=== PATIENT | female | born 1975 | race Caucasian/White ===

== ENCOUNTER → 2016-07-18 | Outpatient (CLI) | payer OTHER ==
[~2016-07-18] MED LIST: LIDOCAINE 1% MDV 20ML VIAL As Ordered ONE
--- NOTE | 2016-07-18 17:51 | REP ---
ULTRASOUND GUIDED STERNAL NOTCH NODULE BIOPSY: The procedure was performed under the direct supervision of Dr. Olson. The patient has a history of superior mediastinal lymphadenopathy with at least 1 node to the left of midline just above the suprasternal notch seen on a previous CAT scan dated 02/04/2016. The risks and benefits of the procedure were explained to the patient and informed consent was obtained. The sternal notch nodule was localized using ultrasound guidance. The skin was prepped and draped in a sterile fashion. 1% Xylocaine was used as a local anesthetic. Using ultrasound guidance 6 fine-needle aspirations were obtained and sent to the lab. The patient tolerated the procedure well and there were no immediate complications. After the appropriate amount of monitored convalesce the patient was discharged from the department. Reviewed by PAO Suarez 07/19/2016 08:33 AEdited and Signed by Rich Olson MD 07/19/2016 02:44 P
== END ==
LOC: M RADPRO 09:32
PROVIDERS: ATTEND Otolaryngology
DX: R89.6 Abnormal cytological findings in specimens from other organs, systems and tissues (principal); R22.1 Localized swelling, mass and lump, neck; Z88.1 Allergy status to other antibiotic agents; Z79.899 Other long term (current) drug therapy

== ENCOUNTER → 2016-08-03 | Outpatient (CLI) | payer OTHER ==
[~2016-08-03] MED LIST changes: +ISOVUE-370 76% 100ML VIAL (Q9967) As Ordered ONE; -LIDOCAINE 1% MDV 20ML VIAL As Ordered ONE
--- NOTE | 2016-08-03 09:10 | REP ---
CT CHEST WITH CONTRAST: 08/03/2016. Comparison: CT neck 02/04/2016, ultrasound neck 02/01/2016. Clinical history: chest pain. Cervical adenopathy sternal notch and superior mediastinum. Technique: Bolus of 75 ml Isovue 370 scanning through the chest in both coronal and sagittal reconstructions. Findings: The lung marin are well inflated. There is no pleural effusion, pleural-based mass, calcified pleural plaque or acute infiltrate. Some minor apical scarring. No pneumothorax, pneumomediastinum or other acute finding. A 1 mm subpleural nodule seen in the right upper lobe without other definite nodules. The heart is not enlarged as no pericardial thickening or effusion. There is no aortic aneurysm of the ascending aorta 3.1 cm ascending aorta 2 cm and a and arch of 2.2 cm. No dissection. The main right and left pulmonary arteries and the mediastinum are without filling defects. There are prevascular space nodes with a and 19 and 15 mm node present adjacent to the main pulmonary artery segment and aortic arch and a 13 mm node adjacent to the anterior margin of the arch in the superior mediastinum. At the level of the takeoff of the left common carotid artery is a 2.1 x 1.1 cm node. Previous study. This was 10 x 1.23 cm. That just above the sternal notch where there was a 12 x 7 mm lymph node on the previous CT neck. I do not see a noted today. Thyroid lobes are unremarkable. The supraclavicular region was without other mass. There are multiple small nodes in the axilla. I cannot deftly of pathologic size. The ana show no pathologic adenopathy. AP window, prevascular, subcarinal and right paratracheal regions without adenopathy. Bone windows show the sternum, manubrium, clavicles, AC joints, glenohumeral joints, humeral heads, scapulae and ribs intact. Spine shows no compression deformity of destructive lesion. In the upper abdomen only a portion of liver and spleen are identified and without acute finding. The pancreatic he contours only seen in part with a portion of the head, body and tail adrenal glands without a mass. The upper poles of kidneys intact. Stomach showed no hiatal hernia is collapsed. Impression: 1. The suprasternal notch node on the previous study is not visible today but there is adenopathy in the superior mediastinum adjacent to the aortic arch, AP window and takeoff of the left common carotid artery as described. The largest node is the 15 mm node in the prevascular space along with 13 and 9 mm nodes as well. Adjacent to the left common carotid artery is another node at 2.1 x 1.1 cm. These are similar to last year's CT neck. I do not see other significant nodes or masses in the chest. A 1 mm of lung nodule on the right subpleural region is, of doubtful significance. 2. The aorta, central pulmonary arteries, heart and chest wall were unremarkable. Bones intact. Signed by Kushal Nuñez MD 08/03/2016 09:01 A
== END ==
LOC: M RAD 08:11
PROVIDERS: ATTEND Otolaryngology
DX: R59.0 Localized enlarged lymph nodes (principal); R07.9 Chest pain, unspecified
CPT/HCPCS: 71260; Q9967

== ENCOUNTER → 2017-02-15 | Outpatient (CLI) | payer OTHER ==
--- NOTE | 2017-02-15 10:15 | REP ---
BILATERAL MAMMOGRAM WITH DIAGNOSTIC MAMMOGRAM, LEFT BREAST AND LEFT BREAST ULTRASOUND: Bilateral mammography performed in the MLO and CC projections. There are no prior studies for comparison. Reportedly, there is a palpable abnormality just inferior to the nipple on the left side. That area is marked on the skin with a triangular marker. Breast parenchyma is extremely dense bilaterally limiting the sensitivity of the mammogram. No definite mass or architectural distortion is seen bilaterally. No clustered microcalcifications are seen. Real-time sonographic evaluation of the left breast is performed just below the left nipple at the site of the reported palpable abnormality. Some dilated ducts are seen with dense fibroglandular tissue. No discrete cystic or solid mass is seen. IMPRESSION: ACR 2 benign. No mass or clustered microcalcifications. Dense breast parenchymal limits the sensitivity of the mammogram. There is no mammographic or sonographic evidence of a suspicious mass at the site of the reported palpable abnormality just inferior to the left nipple. However, a negative mammogram and ultrasound should not deter biopsy if there is a clinically suspicious palpable mass present. Please note that according to the Tyrer-Cuzick risk model, the patient's lifetime risk for breast cancer is 22%, which is elevated above normal. There is a family history of breast cancer in a paternal aunt. Given the elevated lifetime risk for breast cancer, I would recommend MRI of the breasts. Also recommend followup mammogram in 1 years. BI-RADS/ACR category 2 mammogram. Benign finding(s). Routine annual screening mammography (for women over age 40). This mammogram was interpreted with the aid of an FDA-approved computer-aided detection system. A. Negative x-ray reports should not delay biopsy if a dominant or clinically suspicious mass is present. B. Four to eight percent of cancers are not identified by x-ray. C. Adenosis and dense breasts may obscure an underlying neoplasm. The patient states that she/he has not had a clinical breast exam in over a year. The patient letter being requested is M2 Signed by Rogelio Kong MD 02/15/2017 07:50 P
== END ==
LOC: M RAD 08:02
PROVIDERS: ATTEND Physician Assistant Medical
DX: Z12.31 Encounter for screening mammogram for malignant neoplasm of breast (principal); Z12.4 Encounter for screening for malignant neoplasm of cervix

== ENCOUNTER 2017-09-03 09:19 | Day surgery (SDC) | payer OTHER ==
[2017-09-03] MEDS: NS 1,000 ML IV (10:02)
[2017-09-03] MEDS ORDERED: PROPOFOL 200 MG/20 ML VIAL As Ordered (10:46)
[2017-09-03] MEDS ORDERED: LIDOCAINE 2% INJ 100 MG/5 ML SDV (FOR ANES.) As Ordered (10:46)
== END 2017-09-03 11:19 | disposition home or self-care (01) ==
LOC: M OPP 09:19
DX: R12 Heartburn (principal); K22.8 Other specified diseases of esophagus; K29.50 Unspecified chronic gastritis without bleeding; K21.9 Gastro-esophageal reflux disease without esophagitis; F41.9 Anxiety disorder, unspecified; Z79.899 Other long term (current) drug therapy; Z88.1 Allergy status to other antibiotic agents
CPT/HCPCS: 43239